=== PATIENT | male | born 1970 | race Caucasian/White ===

== ENCOUNTER 2016-09-22 03:08 | Emergency (ER) | payer MEDICAID ==
[2016-09-22] MEDS ORDERED: Acetaminophen/HYDROcodone 325-7.5 MG Tab PO ONE (03:24)
[2016-09-22] MEDS ORDERED: Bacitracin Oint 1 GM U/D Packet TOP ONE (03:24)
[2016-09-22] MEDS ORDERED: Lidocaine 1% 20 ML MDV INJECT ONE (03:24)
[2016-09-22] MEDS ORDERED: Sulfamethoxazole/Trimethoprim 800-160 MG Tab PO ONE (03:24)
--- NOTE | 2016-09-22 03:29 | EDM.PDOC ---
ED HPI Skin/Rash - General Chief Complaint: Skin Complaint Stated Complaint: EAR PAIN Time Seen by Provider: 09/22/16 03:13 - History of Present Illness INITIAL COMMENTS - FREE TEXT/NARRATIVE: HISTORY AND PHYSICAL: History of present illness: The patient is a 46-year-old male who states he has a history of hypertension and presents with a cyst like area on his ear which has been there for about a week and has manipulated getting some pus. Patient said initially that it was a pimple and seemed to get worse. It has extended inside your and he feels like his ear canal is swollen. He says it hurts when he chews food because of the discomfort at the year. He's had no fever chills nausea vomiting chest pain or shortness of breath. He has no sore throat. Review of systems: As per history of present illness and below otherwise all systems reviewed and negative. Past medical history: As per history of present illness and as reviewed below otherwise noncontributory. Surgical history: As per history of present illness and as reviewed below otherwise noncontributory. Social history: No reported history of drug or alcohol abuse. Family history: As per history of present illness and as reviewed below otherwise noncontributory. Physical exam: General: Well-developed well-nourished male who is nontoxic and speaking clearly and easily. Vital signs as noted by me HEENT: Atraumatic, normocephalic, pupils reactive, negative for conjunctival pallor or scleral icterus, mucous membranes moist, throat clear, neck supple, nontender, trachea midline. There is no cervical adenopathy or nuchal rigidity there is no mastoid tenderness on the left or redness. There is a 1.0 x 1.5 cm raised fluctuant area just at the entrance to the external canal above the ear lobe and there is induration and tenderness that extends into the earlobe and into the external canal and the auricle. There is pain with movement of the ear and external canal has significant swelling it is difficult to see the TM on that side. There is scant amount of drainage already starting to spontaneously drain Lungs: Clear to auscultation, breath sounds equal bilaterally, chest nontender. Heart: S1S2, regular, negative for clicks, rubs, or JVD. Abdomen: Soft, nondistended, nontender. NABS Genitourinary: Deferred. Rectal: Deferred. Extremities: Atraumatic, full range of motion no defects or deficits Neurovascular unremarkable. Neuro: Awake, alert, oriented. Cranial nerves II through XII unremarkable. Cerebellum unremarkable--he should ambulate into the ED without assistance or distress. Motor and sensory unremarkable throughout. Exam nonfocal. Skin: There is no evidence of any overt rashes or lesions on the face upper extremities and turgor is normal Diagnostics: [] Therapeutics: Pre-auricular block with lidocaine without epinephrine, [place] by mouth, Bactrim by mouth Procedure note: After the procedure was explained to the patient and at 3 auricular block was placed with 1% lidocaine without epinephrine the area was cleansed with saline and Betadine prep and using an 11 blade scalpel the area that already spontaneously opened was expanded and using a hemostat the cyst cavity was entered but only a small amount of drainage was obtained. The patient tolerated this well and a dressing was applied. Impression: External ear or canal/auricular abscess/cyst with drainage and local cellulitis Definitive disposition and diagnosis as appropriate pending reevaluation and review of above. - Related Data Allergies Allergy/AdvReac Type Severity Reaction Status Date / Time amoxicillin trihydrate Allergy Cannot Verified 09/22/16 03:15 [From Augmentin] Remember potassium clavulanate Allergy Cannot Verified 09/22/16 03:15 [From Augmentin] Remember Home Meds: Ambulatory Orders Medication Instructions Recorded Confirmed Lisinopril [Lisinopril] 1 tab PO DAILY 03/04/16 09/22/16 Past Medical History - Past Health History Medical/Surgical History: Denies Medical/Surgical History HEENT History: Reports: None Cardiovascular History: Reports: Hypertension Other Genitourinary History: 'Swollen prostate' Psychiatric History: Reports: None Dermatologic History: Reports: None - Infectious Disease History Infectious Disease History: Reports: None - Past Surgical History HEENT Surgical History: Reports: None Cardiovascular Surgical History: Reports: None Social & Family History - Family History Family Medical History: Noncontributory - Tobacco Use Smoking Status *Q: Current Every Day Smoker Years of Tobacco use: 33 Packs/Tins Daily: 1 Used Tobacco, but Quit: Yes Month Tobacco Last Used: 12/2013 Second Hand Smoke Exposure: No - Alcohol Use Days Per Week of Alcohol Use: 3 Number of Drinks Per Day: 4 Total Drinks Per Week: 12 - Recreational Drug Use Recreational Drug Use: No ED ROS GENERAL - Review of Systems Review Of Systems: ROS reveals no pertinent complaints other than HPI. ED EXAM, SKIN/RASH Exam: See Below (See dictation) Course - Vital Signs Last Recorded V/S: Last Vital Signs Temp 36.4 C 09/22/16 03:16 Pulse 117 H 09/22/16 03:16 Resp 16 09/22/16 03:16 BP 157/95 H 09/22/16 03:16 Pulse Ox 97 09/22/16 03:16 - Orders/Labs/Meds Orders: Active Orders 24 hr Category Date Time Status Communication Order [RC] STAT Care 09/22/16 03:44 Ordered Meds: Medications Discontinued Medications Generic Name Dose Route Start Last Admin Trade Name Dolores PRN Reason Stop Dose Admin Acetaminophen/Hydrocodone Bitart 1 tab 09/22/16 03:24 09/22/16 03:32 [place] 325-7.5 Mg PO 09/22/16 03:25 1 tab ONETIME ONE Administration Bacitracin 1 dose 09/22/16 03:24 09/22/16 03:32 Bacitracin Oint 1 Gm TOP 09/22/16 03:25 1 dose ONETIME ONE Administration Lidocaine HCl 20 ml 09/22/16 03:24 09/22/16 03:33 Xylocaine 1% INJECT 09/22/16 03:25 20 ml ONETIME ONE Administration Trimethoprim/Sulfamethoxazole 1 tab 09/22/16 03:24 09/22/16 03:33 Septra Ds PO 09/22/16 03:25 1 tab ONETIME ONE Administration Departure - Departure Time of Disposition: 03:46 Disposition: Home, Self-Care 01 Condition: good Clinical Impression: Abscess, Cyst on ear Cellulitis Qualifiers: Site of cellulitis: other site Qualified Code(s): L03.818 - Cellulitis of other sites Forms: ED Department Discharge Additional Instructions: The following information is given to patients seen in the emergency department who are being discharged to home. This information is to outline your options for follow-up care. We provide all patients seen in our emergency department with a follow-up referral. The need for follow-up, as well as the timing and circumstances, are variable depending upon the specifics of your emergency department visit. If you don't have a primary care physician on staff, we will provide you with a referral. We always advise you to contact your personal physician following an emergency department visit to inform them of the circumstance of the visit and for follow-up with them and/or the need for any referrals to a consulting specialist. The emergency department will also refer you to a specialist when appropriate. This referral assures that you have the opportunity for followup care with a specialist. All of these measure are taken in an effort to provide you with optimal care, which includes your followup. Under all circumstances we always encourage you to contact your private physician who remains a resource for coordinating your care. When calling for followup care, please make the office aware that this follow-up is from your recent emergency room visit. If for any reason you are refused follow-up, please contact the [facility] emergency department at and ask to speak to the emergency department charge nurse. [facility] Primary care- Internal Medicine and Family [facility] [address] [place] [id number] [facility] Specialty clinic-Plastic Surgery and Hand Surgery Professional Building [address] [place] [id number] As expected drainage from the ear and take antibiotics as directed. Please take the dressing off it was placed in the ER in 12 hours and apply bacitracin or Neosporin for the next several days and then stop. Please call and followup with primary care or her plastic surgeon for further reevaluation and care and return to ER as needed and as discussed. Take [id number] Motrin or ibuprofen for pain and take stronger pain medications and at sleep times. - My Orders Last 24 Hours: My Active Orders 09/22/16 03:44 Communication Order [RC] STAT - Assessment/Plan Last 24 Hours: My Active Orders 09/22/16 03:44 Communication Order [RC] STAT
[2016-09-22 04:20] VITALS: BP 139/76
== END 2016-09-22 04:17 | disposition home or self-care (01) ==
LOC: MW.ED 03:08
DX: L03.818 Cellulitis of other sites (principal); H60.00 Abscess of external ear, unspecified ear; Q18.1 Preauricular sinus and cyst; I10 Essential (primary) hypertension; Z79.899 Other long term (current) drug therapy; Z88.1 Allergy status to other antibiotic agents; F17.210 Nicotine dependence, cigarettes, uncomplicated
CPT/HCPCS: 69000; 99282; A9270; 99283

== ENCOUNTER 2017-01-12 14:34 | Emergency (ER) | payer MEDICAID, OTHER ==
--- NOTE | 2017-01-12 14:42 | EDM.PDOC ---
ED HPI GENERAL MEDICAL PROBLEM - General Chief Complaint: Skin Complaint Stated Complaint: POSSIBLE STAPH INFECTION Time Seen by Provider: 01/12/17 14:39 - History of Present Illness INITIAL COMMENTS - FREE TEXT/NARRATIVE: HISTORY AND PHYSICAL: History of present illness: Patient is a 46-year-old male who presents from [facility] in custody with a complaint of infection to his right leg he has had cellulitis before the series been worse over last several days his been no reported fever chills nausea vomiting or other complaints Review of systems: As per history of present illness and below otherwise all systems reviewed and negative. Past medical history: As per history of present illness and as reviewed below otherwise noncontributory. Surgical history: As per history of present illness and as reviewed below otherwise noncontributory. Social history: No reported history of drug or alcohol abuse. Family history: As per history of present illness and as reviewed below otherwise noncontributory. Physical exam: HEENT: Atraumatic, normocephalic, pupils reactive, negative for conjunctival pallor or scleral icterus, mucous membranes moist, throat clear, neck supple, nontender, trachea midline. Lungs: Clear to auscultation, breath sounds equal bilaterally, chest nontender. Heart: S1S2, regular, negative for clicks, rubs, or JVD. Abdomen: Soft, nondistended, nontender. Negative for masses or hepatosplenomegaly. Negative for costovertebral tenderness. Pelvis: Stable nontender. Genitourinary: Deferred. Rectal: Deferred. Extremities: Patient is noted to have a excoriated area to the anterolateral aspect of his proximal right leg with surrounding erythema and warmth there is no fluctuance no significant induration Neuro: Awake, alert, oriented. Cranial nerves II through XII unremarkable. Cerebellum unremarkable. Motor and sensory unremarkable throughout. Exam nonfocal. Diagnostics: None Therapeutics: None Impression: #1 cellulitis right leg Definitive disposition and diagnosis as appropriate pending reevaluation and review of above. - Related Data Allergies Allergy/AdvReac Type Severity Reaction Status Date / Time amoxicillin trihydrate Allergy Cannot Verified 09/22/16 03:15 [From Augmentin] Remember potassium clavulanate Allergy Cannot Verified 09/22/16 03:15 [From Augmentin] Remember Home Meds: Home Meds Lisinopril [Lisinopril] 1 tab PO DAILY 03/04/16 [History] Past Medical History - Past Health History Medical/Surgical History: Denies Medical/Surgical History HEENT History: Reports: None Cardiovascular History: Reports: Hypertension Other Genitourinary History: 'Swollen prostate' Psychiatric History: Reports: None Dermatologic History: Reports: None - Infectious Disease History Infectious Disease History: Reports: None - Past Surgical History HEENT Surgical History: Reports: None Cardiovascular Surgical History: Reports: None Social & Family History - Family History Family Medical History: Noncontributory - Tobacco Use Smoking Status *Q: Current Every Day Smoker Years of Tobacco use: 33 Packs/Tins Daily: 1 Used Tobacco, but Quit: Yes Month Tobacco Last Used: 12/2013 Second Hand Smoke Exposure: No - Alcohol Use Days Per Week of Alcohol Use: 3 Number of Drinks Per Day: 4 Total Drinks Per Week: 12 - Recreational Drug Use Recreational Drug Use: No ED ROS GENERAL - Review of Systems Review Of Systems: ROS reveals no pertinent complaints other than HPI. ED EXAM, SKIN/RASH Exam: See Below (See dictation) Departure - Departure Time of Disposition: 14:42 Disposition: Home, Self-Care 01 Condition: Good Clinical Impression: Cellulitis - Discharge Information Forms: ED Department Discharge Additional Instructions: The following information is given to patients seen in the emergency department who are being discharged to home. This information is to outline your options for follow-up care. We provide all patients seen in our emergency department with a follow-up referral. The need for follow-up, as well as the timing and circumstances, are variable depending upon the specifics of your emergency department visit. If you don't have a primary care physician on staff, we will provide you with a referral. We always advise you to contact your personal physician following an emergency department visit to inform them of the circumstance of the visit and for follow-up with them and/or the need for any referrals to a consulting specialist. The emergency department will also refer you to a specialist when appropriate. This referral assures that you have the opportunity for followup care with a specialist. All of these measure are taken in an effort to provide you with optimal care, which includes your followup. Under all circumstances we always encourage you to contact your private physician who remains a resource for coordinating your care. When calling for followup care, please make the office aware that this follow-up is from your recent emergency room visit. If for any reason you are refused follow-up, please contact the [facility] emergency department at and asked to speak to the emergency department charge nurse. Clindamycin Bactrim as prescribed follow-up private medical doctor 2440 hrs. return as needed as discussed
== END 2017-01-12 14:46 ==
LOC: MW.ED 14:34
CPT/HCPCS: 99282

== ENCOUNTER 2019-05-10 14:02 | Emergency (ER) | payer MEDICAID, OTHER ==
--- NOTE | 2019-05-10 14:10 | EDM.PDOC ---
ED HPI GENERAL MEDICAL PROBLEM - General Chief Complaint: Lower Extremity Injury/Pain Stated Complaint: LEFT KNEE PAIN Time Seen by Provider: 05/10/19 14:08 Source of Information: Reports: Patient History Limitations: Reports: No Limitations - History of Present Illness INITIAL COMMENTS - FREE TEXT/NARRATIVE: History of present illness: []Patient started having left knee swelling 5 days ago went to urgent care and had blood work that was normal and his hypertensive medicines changed. He also complains of right hand swelling and swelling in his ankles. His symptoms have Not improved with the medication changed to HCTZ. He denies any trauma, fevers, chills, knee pain or difficulty walking. She has no chest pain, shortness of breath or other symptoms. She states she's had this problem in the past and was started on steroids that worked well. Review of systems: As per history of present illness and below otherwise all systems reviewed and negative. Past medical history: As per history of present illness and as reviewed below otherwise noncontributory. Surgical history: As per history of present illness and as reviewed below otherwise noncontributory. Social history: No reported history of drug or alcohol abuse. Family history: As per history of present illness and as reviewed below otherwise noncontributory. Physical exam: General: Well developed, well nourished in NAD HEENT: Atraumatic, normocephalic, pupils reactive, negative for conjunctival pallor or scleral icterus, mucous membranes moist, throat clear, neck supple, nontender, trachea midline. Lungs: Clear to auscultation, breath sounds equal bilaterally, chest nontender. Heart: S1S2, regular, negative for clicks, rubs, or JVD. Abdomen: NABS, Soft, nondistended, nontender. Negative for masses or hepatosplenomegaly. Negative for costovertebral tenderness. Pelvis: Stable nontender. Genitourinary: Deferred. Rectal: Deferred. Extremities: Atraumatic, left knee with lateral suprapatellar effusion, nontender on exam, 1+ pitting edema distally, negative for cords or calf pain. Neurovascular unremarkable. Neuro: Awake, alert, oriented. Cranial nerves II through XII unremarkable. Cerebellum unremarkable. Motor and sensory unremarkable throughout. Exam nonfocal. Skin:warm and dry Diagnostics: None Therapeutics: None ED Course: stable Impression: Left knee effusion Prescriptions: Prednisone Plan: Take meds as directed, follow up with your primary care physician, return to ER if symptoms worsen or change. Definitive disposition and diagnosis as appropriate pending reevaluation and review of above. - Related Data Allergies Allergy/AdvReac Type Severity Reaction Status Date / Time amoxicillin [From Augmentin] Allergy swlling on Verified 05/10/19 14:20 lips and itching amoxicillin trihydrate Allergy Cannot Verified 05/10/19 14:20 [From Augmentin] Remember clavulanic acid Allergy swlling on Verified 05/10/19 14:20 [From Augmentin] lips and itching potassium clavulanate Allergy Cannot Verified 05/10/19 14:20 [From Augmentin] Remember Sulfa (Sulfonamide Allergy Swelling Verified 05/10/19 14:20 Antibiotics) sulfamethoxazole Allergy swelling Verified 05/10/19 14:20 [From Bactrim] on the mouth and itching trimethoprim [From Bactrim] Allergy swelling Verified 05/10/19 14:20 on the mouth and itching Home Meds: Home Meds Allopurinol [Zyloprim] 100 mg PO DAILY 05/10/19 [History] Hydrochlorothiazide [Microzide] 12.5 mg PO DAILY 05/10/19 [History] predniSONE [Prednisone] 20 mg PO DAILY #5 tablet 05/10/19 [Rx] Past Medical History - Past Health History Medical/Surgical History: Denies Medical/Surgical History HEENT History: Reports: None Cardiovascular History: Reports: Hypertension Respiratory History: Reports: None Gastrointestinal History: Reports: None Genitourinary History: Reports: None Other Genitourinary History: 'Swollen prostate' Musculoskeletal History: Reports: Gout, None Neurological History: Reports: None Psychiatric History: Reports: None Endocrine/Metabolic History: Reports: None Hematologic History: Reports: None Immunologic History: Reports: None Oncologic (Cancer) History: Reports: None Dermatologic History: Reports: Cellulitis, None - Infectious Disease History Infectious Disease History: Reports: None - Past Surgical History HEENT Surgical History: Reports: Adenoidectomy, Tonsillectomy Cardiovascular Surgical History: Reports: None Social & Family History - Family History Family Medical History: Noncontributory - Caffeine Use Caffeine Use: Reports: None Review of Systems - Review of Systems Review Of Systems: See Below ED EXAM, GENERAL - Physical Exam Exam: See Below Course - Vital Signs Last Recorded V/S: Last Vital Signs Temp 98.3 F 05/10/19 14:21 Pulse 108 H 05/10/19 14:21 Resp 17 05/10/19 14:21 BP 135/82 05/10/19 14:21 Pulse Ox 98 05/10/19 14:21 Departure - Departure Time of Disposition: 14:24 Disposition: Home, Self-Care 01 Condition: Good Clinical Impression: Effusion, left knee - Discharge Information *PRESCRIPTION DRUG MONITORING PROGRAM REVIEWED*: No *COPY OF PRESCRIPTION DRUG MONITORING REPORT IN PATIENT ROCKY: No Prescriptions: predniSONE [Prednisone] 20 mg PO DAILY #5 tablet Referrals: PCP,None [Primary Care Provider] - Forms: ED Department Discharge Additional Instructions: The following information is given to patients seen in the emergency department who are being discharged to home. This information is to outline your options for follow-up care. We provide all patients seen in our emergency department with a follow-up referral. The need for follow-up, as well as the timing and circumstances, are variable depending upon the specifics of your emergency department visit. If you don't have a primary care physician on staff, we will provide you with a referral. We always advise you to contact your personal physician following an emergency department visit to inform them of the circumstance of the visit and for follow-up with them and/or the need for any referrals to a consulting specialist. The emergency department will also refer you to a specialist when appropriate. This referral assures that you have the opportunity for follow-up care with a specialist. All of these measure are taken in an effort to provide you with optimal care, which includes your follow-up. Under all circumstances we always encourage you to contact your private physician who remains a resource for coordinating your care. When calling for follow-up care, please make the office aware that this follow-up is from your recent emergency room visit. If for any reason you are refused follow-up, please contact the [facility] Emergency Department at and asked to speak to the emergency department charge nurse. Take meds as directed, follow up with your primary care physician, return to ER if symptoms worsen or change. [facility] Specialty Care - Orthopedic Clinic Professional [address], [address] [place] [address]
[2019-05-10 14:23] VITALS: BP 135/82; PULSE 108
== END 2019-05-10 14:34 | disposition home or self-care (01) ==
LOC: MW.ED 14:02
DX: M25.462 Effusion, left knee (principal); I10 Essential (primary) hypertension; Z79.899 Other long term (current) drug therapy; Z88.0 Allergy status to penicillin; Z88.1 Allergy status to other antibiotic agents; Z88.2 Allergy status to sulfonamides
CPT/HCPCS: 99282; 99283

== ENCOUNTER 2020-02-16 07:53 | Day surgery (SDC) | payer MEDICAID ==
[~2020-02-16 07:53] MED LIST: Lactated Ringers 1,000 ML IV SCH
[2020-02-16] MEDS ORDERED: Ondansetron 4 MG/2 ML SDV ONE (08:28)
[2020-02-16] MEDS ORDERED: Midazolam 1 MG/ML 2 ML SDV ONE (08:29)
[2020-02-16] MEDS ORDERED: Propofol 200 MG/20 ML SDV ONE (08:29)
[2020-02-16] MEDS ORDERED: fentaNYL 100 MCG/2 ML SDV ONE (08:29)
--- NOTE | 2020-02-16 08:49 | PCM.PREANE ---
Preanesthetic Assessment - Anesthesia/Transfusion/Family Hx Anesthesia History: Prior Anesthesia Without Reaction Family History of Anesthesia Reaction: No Transfusion History: No Prior Transfusion(s) Intubation History: Unknown - Review of Systems General: No Symptoms Pulmonary: No Symptoms Cardiovascular: No Symptoms Gastrointestinal: No Symptoms Neurological: No Symptoms Other: Reports: None - Physical Assessment Vital Signs: Last Vital Signs Temp 36.1 C 02/16/20 08:10 Pulse 93 02/16/20 08:10 Resp 18 02/16/20 08:10 BP 136/88 02/16/20 08:10 Pulse Ox 94 L 02/16/20 08:10 Height: 6 ft Weight: 161.479 kg ASA Class: 3 Mental Status: Alert & Oriented x3 Airway Class: Mallampati = 1 Dentition: Reports: Normal Dentition Thyro-Mental Finger Breadths: 3 Mouth Opening Finger Breadths: 3 ROM/Head Extension: Full Lungs: Clear to Auscultation, Normal Respiratory Effort Cardiovascular: Regular Rate, Regular Rhythm - Allergies Allergies/Adverse Reactions: Allergies Allergy/AdvReac Type Severity Reaction Status Date / Time amoxicillin [From Augmentin] Allergy swlling on Verified 02/10/20 10:24 lips and itching amoxicillin trihydrate Allergy Cannot Verified 02/10/20 10:24 [From Augmentin] Remember clavulanic acid Allergy swlling on Verified 02/10/20 10:24 [From Augmentin] lips and itching potassium clavulanate Allergy Cannot Verified 02/10/20 10:24 [From Augmentin] Remember Sulfa (Sulfonamide Allergy Swelling Verified 02/10/20 10:24 Antibiotics) sulfamethoxazole Allergy swelling Verified 02/10/20 10:24 [From Bactrim] on the mouth and itching trimethoprim [From Bactrim] Allergy swelling Verified 02/10/20 10:24 on the mouth and itching - Blood Blood Available: No - Anesthesia Plan Pre-Op Medication Ordered: None - Acknowledgements Anesthesia Type Planned: General Anesthesia Pt an Appropriate Candidate for the Planned Anesthesia: Yes Alternatives and Risks of Anesthesia Discussed w Pt/Guardian: Yes Pt/Guardian Understands and Agrees with Anesthesia Plan: Yes PreAnesthesia Questionnaire - Past Health History Medical/Surgical History: Denies Medical/Surgical History HEENT History: Reports: None Cardiovascular History: Reports: High Cholesterol, Hypertension Respiratory History: Reports: Sleep Apnea Other Respiratory History: uses CPAP every night Gastrointestinal History: Reports: GERD, Hepatitis Other Gastrointestinal History: hx of Hepatitis C- states it is "gone" Genitourinary History: Reports: None Other Genitourinary History: 'Swollen prostate' Musculoskeletal History: Reports: Fracture, Gout Other Musculoskeletal History: hx of fx ankle Neurological History: Reports: None Psychiatric History: Reports: None Endocrine/Metabolic History: Reports: Obesity/BMI 30+ (BMI 48.3) Hematologic History: Reports: None Immunologic History: Reports: None Oncologic (Cancer) History: Reports: None Dermatologic History: Reports: Other (See Below) Other Dermatologic History: hx of Staph infections (MRSA), hx of fungus like rash- currently on hip - Infectious Disease History Infectious Disease History: Reports: None - Past Surgical History Head Surgeries/Procedures: Reports: None HEENT Surgical History: Reports: Adenoidectomy, Tonsillectomy Other Female Surgeries/Procedures: Excision of Epididymal Cyst Male Surgical History: Reports: Other (See Below) (exc. left epididimal cyst) - SUBSTANCE USE Smoking Status *Q: Current Every Day Smoker Days Per Week of Alcohol Use: 1 - HOME MEDS Home Medications: Home Meds allopurinoL [Zyloprim] 300 mg PO DAILY 05/10/19 [History] hydroCHLOROthiazide [Microzide] 25 mg PO DAILY 05/10/19 [History] Colchicine 2 tab PO ASDIRECTED 02/10/20 [History] Ibuprofen 1 tab PO ASDIRECTED PRN 02/10/20 [History] Losartan Potassium 50 mg PO DAILY 02/10/20 [History] Rosuvastatin Calcium 20 mg PO DAILY 02/10/20 [History] Testosterone Cypionate 100 mg IM WEEKLY 02/10/20 [History] - CURRENT (IN HOUSE) MEDS Current Meds: Current Medications Lactated Ringer's (Ringers, Lactated) 1,000 mls @ 100 mls/hr IV ASDIRECTED JEREMY Discontinued Medications Fentanyl (Sublimaze) Confirm Administered Dose 100 mcg .ROUTE .STK-MED ONE Stop: 02/16/20 08:30 Midazolam HCl (Versed 1 Mg/Ml) Confirm Administered Dose 2 mg .ROUTE .STK-MED ONE Stop: 02/16/20 08:30 Ondansetron HCl (Zofran) Confirm Administered Dose 4 mg .ROUTE .STK-MED ONE Stop: 02/16/20 08:29 Propofol (Diprivan 20 Ml) Confirm Administered Dose 400 mg .ROUTE .[facility] ONE Stop: 02/16/20 08:30
[2020-02-16] MEDS ORDERED: Ciprofloxacin in D5W 200 ML ONE (09:57)
[2020-02-16] MEDS ORDERED: Ciprofloxacin in D5W 400 MG in Premix Bag 1 BAG IV SCH ×2 (10:15)
[2020-02-16] MEDS ORDERED: Ketorolac 30 MG/ML SDV ONE (11:44)
[2020-02-16] MEDS ORDERED: COLCHICINE PO SCH (12:15)
[2020-02-16] MEDS ORDERED: TESTOSTERONE CYPIONATE 100 MG IM SCH (12:15)
--- NOTE | 2020-02-16 12:27 | PCM.POSTAN ---
POST ANESTHESIA ASSESSMENT - MENTAL STATUS Mental Status: Alert, Oriented - VITAL SIGNS Vital Signs: Last Vital Signs Temp 36 C L 02/16/20 11:58 Pulse 82 02/16/20 12:19 Resp 12 02/16/20 12:19 BP 102/61 02/16/20 12:19 Pulse Ox 95 02/16/20 12:19 - RESPIRATORY Respiratory Status: Respiratory Rate WNL, Airway Patent, O2 Saturation Stable - CARDIOVASCULAR CV Status: Pulse Rate WNL, Blood Pressure Stable - GASTROINTESTINAL GI Status: No Symptoms - PAIN Pain Score: 0 - POST OP HYDRATION Hydration Status: Adequate & Stable - OBSERVATIONS Free Text/Narrative:: No anesthesia problems, some motor and sensory deficit from spinal anes. still present
--- NOTE | 2020-02-16 12:50 | OR ---
SURGEON: Reinaldo Spencer M.D. DATE OF PROCEDURE: 02/16/2020 PREOPERATIVE DIAGNOSIS: Large right epididymal cyst. POSTOPERATIVE DIAGNOSIS: Large right epididymal cyst. OPERATION: Epididymal cyst excision. DESCRIPTION OF PROCEDURE: The patient was given spinal anesthesia. He was in supine position. External genital area was prepped and draped in sterile drapes. A transverse incision was made in the right scrotal sac. The testicle with the attached epididymal cyst was delivered. Dissection was continued until the epididymal cyst was relatively free. The cyst was not completely free. The cyst wall was not completely free because he had a previous epididymal cyst excision a few years back and this was a recurrent. So there were adhesions between the cyst, the testicle, and the cord structures. So that part of the cyst was left in place. The edges were either fulgurated or sutured with a running 3-0 chromic suture to control any possible future bleeding. All other areas of question were either coagulated or tied off. The blood flow into the cord was palpable at the end of the procedure. The testicle with the cord structures attached was put back in the scrotal sac, which was then irrigated. The wound was closed after a separate stab wound incision in the bottom of the scrotal sac was made for drainage through which a quarter-inch Regulo drain was advanced. The closure was done with two layers of 3-0 chromic running suture for the subcutaneous tissue including the muscle and 3-0 chromic interrupted sutures for the skin. The drain was secured in place with 2-0 silk. The patient tolerated the procedure well. Blood loss was minimal, under 10 mL. He was moved to recovery room in good condition. PLAN: I will see him again in 2 days to take the Regulo drain out. SHEREE / THOMAS /[id number]
--- NOTE | 2020-02-16 14:40 | PCM48HPAN ---
Post Anesthesia Note - EVALUATION WITHIN 48HRS OF ANESTHETIC Vital Signs in Normal Range: Yes Patient Participated in Evaluation: Yes Respiratory Function Stable: Yes Airway Patent: Yes Cardiovascular Function Stable: Yes Hydration Status Stable: Yes Pain Control Satisfactory: Yes Nausea and Vomiting Control Satisfactory: Yes Mental Status Recovered: Yes Vital Signs: Last Vital Signs Temp 36 C L 02/16/20 11:58 Pulse 82 02/16/20 12:19 Resp 12 02/16/20 12:19 BP 102/61 02/16/20 12:19 Pulse Ox 95 02/16/20 12:19 - COMMENTS/OBSERVATIONS Free Text/Narrative:: No anesthesia problems
[2020-02-16 16:41] VITALS: BP 108/66; PULSE 76
[2020-02-17] MEDS ORDERED: LOSARTAN POTASSIUM 50 MG PO SCH (09:00)
[2020-02-17] MEDS ORDERED: HYDROCHLOROTHIAZIDE 25 MG PO SCH (09:00)
[2020-02-17] MEDS ORDERED: Non-Formulary Medication 1 Each (Allopurinol [Zyloprim] 300 MG) PO SCH (09:00)
[2020-02-17] MEDS ORDERED: Non-Formulary Medication 1 Each (Rosuvastatin Calcium [Rosuvastatin Calcium] 20 MG) PO SCH (09:00)
== END 2020-02-16 14:30 | disposition home or self-care (01) ==
LOC: MW.SDS 07:53
PROVIDERS: ATTEND Urology
DX: N50.3 Cyst of epididymis (principal); E78.5 Hyperlipidemia, unspecified; I10 Essential (primary) hypertension; E78.00 Pure hypercholesterolemia, unspecified; G47.33 Obstructive sleep apnea (adult) (pediatric); F17.210 Nicotine dependence, cigarettes, uncomplicated; J02.9 Acute pharyngitis, unspecified; E66.9 Obesity, unspecified; Z99.89 Dependence on other enabling machines and devices; Z88.0 Allergy status to penicillin; Z88.2 Allergy status to sulfonamides; Z88.8 Allergy status to other drugs, medicaments and biological substances; Z79.899 Other long term (current) drug therapy; Z68.42 Body mass index [BMI] 45.0-49.9, adult; Z88.1 Allergy status to other antibiotic agents
CPT/HCPCS: 88304; J0131; J0744; J1885; J2250; J2405; J2704; J3010; J7120

== ENCOUNTER 2020-07-03 22:14 | Emergency (ER) | payer MEDICAID, OTHER ==
[2020-07-03] MEDS ORDERED: Meclizine 25 MG Tab PO ONE (22:37)
--- NOTE | 2020-07-03 22:41 | EDM.PDOC ---
ED HPI GENERAL MEDICAL PROBLEM - General Chief Complaint: Fever Stated Complaint: DIZZNESS Time Seen by Provider: 07/03/20 22:26 Source of Information: Reports: Patient History Limitations: Reports: No Limitations - History of Present Illness INITIAL COMMENTS - FREE TEXT/NARRATIVE: Patient is a 50-year-old male who presents today for dizziness. Patient states a few hours ago dizziness started is made worse when he lays down. Patient does have some dizziness when turning his head as well. Patient denies any vision changes numbness weakness in any extremities. Patient also reported some nausea with the dizziness as well. Patient also reported some body aches. Patient denies any fevers cough or shortness of breath. - Related Data Allergies Allergy/AdvReac Type Severity Reaction Status Date / Time amoxicillin [From Augmentin] Allergy swlling on Verified 07/03/20 22:26 lips and itching amoxicillin trihydrate Allergy Cannot Verified 07/03/20 22:26 [From Augmentin] Remember clavulanic acid Allergy swlling on Verified 07/03/20 22:26 [From Augmentin] lips and itching potassium clavulanate Allergy Cannot Verified 07/03/20 22:26 [From Augmentin] Remember Sulfa (Sulfonamide Allergy Swelling Verified 07/03/20 22:26 Antibiotics) sulfamethoxazole Allergy swelling Verified 07/03/20 22:26 [From Bactrim] on the mouth and itching trimethoprim [From Bactrim] Allergy swelling Verified 07/03/20 22:26 on the mouth and itching Home Meds: Home Meds allopurinoL [Zyloprim] 300 mg PO DAILY 05/10/19 [History] hydroCHLOROthiazide [Microzide] 25 mg PO DAILY 05/10/19 [History] Colchicine 2 tab PO ASDIRECTED 02/10/20 [History] Ibuprofen 1 tab PO ASDIRECTED PRN 02/10/20 [History] Losartan Potassium 50 mg PO DAILY 02/10/20 [History] Rosuvastatin Calcium 20 mg PO DAILY 02/10/20 [History] Testosterone Cypionate 100 mg IM WEEKLY 02/10/20 [History] Meclizine HCl [Motion Sickness Relief] 25 mg PO Q8HR PRN 5 Days #15 tab.chew 07/04/20 [Rx] Past Medical History - Past Health History Medical/Surgical History: Denies Medical/Surgical History HEENT History: Reports: None Cardiovascular History: Reports: High Cholesterol, Hypertension Respiratory History: Reports: Sleep Apnea Other Respiratory History: uses CPAP every night Gastrointestinal History: Reports: GERD, Hepatitis Other Gastrointestinal History: hx of Hepatitis C- states it is "gone" Genitourinary History: Reports: None Other Genitourinary History: 'Swollen prostate' Musculoskeletal History: Reports: Fracture, Gout Other Musculoskeletal History: hx of fx ankle Neurological History: Reports: None Psychiatric History: Reports: None Endocrine/Metabolic History: Reports: Obesity/BMI 30+ Hematologic History: Reports: None Immunologic History: Reports: None Oncologic (Cancer) History: Reports: None Dermatologic History: Reports: Other (See Below) Other Dermatologic History: hx of Staph infections (MRSA), hx of fungus like rash- currently on hip - Infectious Disease History Infectious Disease History: Reports: Hepatitis C, MRSA - Past Surgical History Head Surgeries/Procedures: Reports: None HEENT Surgical History: Reports: Adenoidectomy, Tonsillectomy Cardiovascular Surgical History: Reports: None Respiratory Surgical History: Reports: None Male Surgical History: Reports: Other (See Below) Musculoskeletal Surgical History: Reports: None Social & Family History - Family History Family Medical History: No Pertinent Family History - Tobacco Use Tobacco Use Status *Q: Current Every Day Tobacco User Packs/Tins Daily: 1 - Caffeine Use Caffeine Use: Reports: None - Recreational Drug Use Recreational Drug Use: Yes Recreational Drug Type: Reports: Methamphetamine ED ROS GENERAL - Review of Systems Review Of Systems: See Below Constitutional: Reports: No Symptoms HEENT: Reports: No Symptoms Respiratory: Reports: No Symptoms Cardiovascular: Reports: No Symptoms Endocrine: Reports: No Symptoms GI/Abdominal: Reports: Nausea : Reports: No Symptoms Musculoskeletal: Reports: No Symptoms Skin: Reports: No Symptoms Neurological: Reports: Dizziness Psychiatric: Reports: No Symptoms Hematologic/Lymphatic: Reports: No Symptoms Immunologic: Reports: No Symptoms ED EXAM, GENERAL - Physical Exam Exam: See Below Exam Limited By: No Limitations General Appearance: Alert, WD/WN Eye Exam: Bilateral Eye: EOMI, PERRL Head: Atraumatic, Normocephalic Neck: Normal Inspection Respiratory/Chest: No Respiratory Distress, Lungs Clear Cardiovascular: Normal Peripheral Pulses, Regular Rate, Rhythm Extremities: Normal Inspection, Normal Range of Motion Neurological: Alert, Oriented, CN II-XII Intact, Normal Cognition, Normal Gait Course - Vital Signs Last Recorded V/S: Last Vital Signs Temp 96 F L 07/03/20 22:22 Pulse 80 07/04/20 00:08 Resp 18 07/04/20 00:08 BP 118/75 07/04/20 00:08 Pulse Ox 98 07/04/20 00:08 - Orders/Labs/Meds Orders: Active Orders 24 hr Category Date Time Status COVID-19/FLU A+B [MOLEC] Stat Lab 07/04/20 00:25 Received Labs: Laboratory Tests 07/03/20 07/03/20 Range/Units 22:50 22:50 WBC 9.60 (4.0-11.0) K/uL RBC 5.70 (4.50-5.90) M/uL Hgb 16.7 (13.0-17.0) g/dL Hct 49.8 (38.0-50.0) % MCV 87.4 (80.0-98.0) fL MCH 29.3 (27.0-32.0) pg MCHC 33.5 (31.0-37.0) g/dL RDW Std Deviation 43.2 (28.0-62.0) fl RDW Coeff of Liane 14 (11.0-15.0) % Plt Count 294 (150-400) K/uL MPV 10.80 (7.40-12.00) fL Neut % (Auto) 68.6 (48.0-80.0) % Lymph % (Auto) 21.8 (16.0-40.0) % [place] % (Auto) 8.0 (0.0-15.0) % Eos % (Auto) 1.4 (0.0-7.0) % Baso % (Auto) 0.2 (0.0-1.5) % Neut # (Auto) 6.6 H (1.4-5.7) K/uL Lymph # (Auto) 2.1 (0.6-2.4) K/uL [place] # (Auto) 0.8 (0.0-0.8) K/uL Eos # (Auto) 0.1 (0.0-0.7) K/uL Baso # (Auto) 0.0 (0.0-0.1) K/uL Nucleated RBC % 0.0 /100WBC Nucleated RBCs # 0 K/uL Sodium 136 (136-148) mmol/L Potassium 3.6 (3.5-5.1) mmol/L Chloride 101 (98-107) mmol/L Carbon Dioxide 27.4 (21.0-32.0) mmol/L BUN 14 (7.0-18.0) mg/dL Creatinine 1.1 (0.8-1.3) mg/dL Est Cr Clr Drug Dosing 89.16 mL/min Estimated GFR (MDRD) > 60.0 ml/min Glucose 135 H (74-106) mg/dL Calcium 9.1 (8.5-10.1) mg/dL Meds: Medications Discontinued Medications Generic Name Dose Route Start Last Admin Trade Name Freq PRN Reason Stop Dose Admin Diphenhydramine HCl 25 mg 07/03/20 23:28 07/04/20 00:02 Benadryl IVPUSH 07/03/20 23:29 25 mg ONETIME ONE Administration Sodium Chloride 1,000 mls @ 1,000 mls/hr 07/03/20 23:28 07/04/20 00:01 Normal Saline IV 07/04/20 00:27 1,000 mls/hr .Bolus ONE Administration Meclizine HCl 25 mg 07/03/20 22:37 07/03/20 22:52 Antivert PO 07/03/20 22:38 25 mg ONETIME ONE Administration Metoclopramide HCl 10 mg 07/03/20 23:28 07/04/20 00:02 Reglan IVPUSH 07/03/20 23:29 10 mg ONETIME ONE Administration - Re-Assessments/Exams Free Text/Narrative Re-Assessment/Exam: 07/04/20 00:11 Patient still complains of dizziness after receiving meclizine. Patient was now given Reglan and Benadryl. Patient CT head shows no acute findings. Dates that he is feeling better and was able to walk to the bathroom without assistance. Patient will be discharged and back into police custody. Departure - Departure Time of Disposition: 00:53 Disposition: Home, Self-Care 01 Condition: Good Clinical Impression: Dizziness - Discharge Information *PRESCRIPTION DRUG MONITORING PROGRAM REVIEWED*: Not Applicable *COPY OF PRESCRIPTION DRUG MONITORING REPORT IN PATIENT ROCKY: Not Applicable Referrals: PCP,None [Primary Care Provider] - Forms: ED Department Discharge Additional Instructions: The following information is given to patients seen in the emergency department who are being discharged to home. This information is to outline your options for follow-up care. We provide all patients seen in our emergency department with a follow-up referral. The need for follow-up, as well as the timing and circumstances, are variable depending upon the specifics of your emergency department visit. If you don't have a primary care physician on staff, we will provide you with a referral. We always advise you to contact your personal physician following an emergency department visit to inform them of the circumstance of the visit and for follow-up with them and/or the need for any referrals to a consulting specialist. The emergency department will also refer you to a specialist when appropriate. This referral assures that you have the opportunity for follow-up care with a specialist. All of these measure are taken in an effort to provide you with optimal care, which includes your follow-up. Under all circumstances we always encourage you to contact your private physician who remains a resource for coordinating your care. When calling for follow-up care, please make the office aware that this follow-up is from your recent emergency room visit. If for any reason you are refused follow-up, please contact the [facility] Emergency Department at and asked to speak to the emergency department charge nurse. Please follow up with your primary care physician. If you do not have a primary care physician, see below: [facility] [address] [place] [id number] [facility] [address] [place] [id number] Please follow-up with your primary care physician if you have any increased symptoms please return to the ED Sepsis Event Note (ED) - Evaluation Sepsis Screening Result: No Definite Risk - Focused Exam Vital Signs: Vital Signs Temp Pulse Resp BP Pulse Ox 07/04/20 00:08 80 18 118/75 98 07/03/20 23:15 86 18 121/85 95 07/03/20 22:22 96 F L 92 20 153/115 H 95 - My Orders Last 24 Hours: My Active Orders 07/04/20 00:25 COVID-19/FLU A+B [MOLEC] Stat - Assessment/Plan Last 24 Hours: My Active Orders 07/04/20 00:25 COVID-19/FLU A+B [MOLEC] Stat Assessment:: Is a 50-year-old male presents today for dizziness. Patient patient likely peripheral has is made worse with laying down and head turning. Patient will get given meclizine labs and reassess.
[2020-07-03 23:11] LABS: BLOOD UREA NITROGEN,BUN 14 mg/dL (7.0-18.0); CARBON DIOXIDE,CO2 27.4 mmol/L (21.0-32.0); CHLORIDE,CL 101 mmol/L (98-107); GLUCOSE RANDOM 135 mg/dL (74-106); POTASSIUM,K 3.6 mmol/L (3.5-5.1); SODIUM,NA 136 mmol/L (136-148)
[2020-07-03] MEDS ORDERED: Metoclopramide 10 MG/2 ML SDV IVPUSH ONE (23:28)
[2020-07-03] MEDS ORDERED: diphenhydrAMINE 50 MG/ML SDV IVPUSH ONE (23:28)
[2020-07-03] MEDS ORDERED: Sodium Chloride 0.9% 1,000 ML IV ONE (23:28)
--- NOTE | 2020-07-03 23:43 | CT ---
Indication: Dizziness Technique: Nonenhanced axial CT imaging through the head. Sagittal and coronal reconstructions are provided. Comparison: CT head without contrast 01/22/2014 Findings: There is no intracranial hemorrhage, edema, or mass effect. There is normal attenuation of the brain parenchyma. The ventricles are normal in size. The basal cisterns are patent. The calvarium is intact. The visualized paranasal sinuses and mastoid air cells are aerated. Impression: No acute intracranial process. Please note that all CT scans at this facility use dose modulation, iterative reconstruction, and/or weight-based dosing when appropriate to reduce radiation dose to as low as reasonably achievable. Dictated by Andrew Magana MD @ Jul 03 2020 11:33PM Signed by Dr. Andrew Magana @ Jul 03 2020 11:41PM
[2020-07-04 00:09] VITALS: PULSE 80
[2020-07-04 01:07] VITALS: BP 130/90
[2020-07-04 01:15] LABS: CORONAVIRUS COVID-19 NAA NEGATIVE (NEGATIVE); INFLUENZA A NAA NEGATIVE (NEGATIVE); INFLUENZA B NAA NEGATIVE (NEGATIVE)
== END 2020-07-04 01:05 | disposition home or self-care (01) ==
LOC: MW.ED 22:14
DX: R42 Dizziness and giddiness (principal); I10 Essential (primary) hypertension; E78.00 Pure hypercholesterolemia, unspecified; F17.210 Nicotine dependence, cigarettes, uncomplicated; E66.9 Obesity, unspecified; Z68.42 Body mass index [BMI] 45.0-49.9, adult; Z88.0 Allergy status to penicillin; Z88.1 Allergy status to other antibiotic agents; Z88.2 Allergy status to sulfonamides; Z79.899 Other long term (current) drug therapy; Z20.828 Contact with and (suspected) exposure to other viral communicable diseases
CPT/HCPCS: 0240U; 36415; 70450; 80048; 85025; 96374; 96375; 99284; A9270; J1200; J2765; J7030; 99282

== ENCOUNTER 2022-05-14 10:10 | Emergency (ER) | payer MEDICAID ==
[2022-05-14] MEDS ORDERED: Sodium Chloride 0.9% 2.5 ML Syringe FLUSH PRN (10:35)
[2022-05-14] MEDS ORDERED: Sodium Chloride 0.9% 10 ML Syringe FLUSH PRN (10:35)
[2022-05-14 11:06] LABS: CARBON DIOXIDE,CO2 26.9 mmol/L (21.0-32.0); POTASSIUM,K 3.6 mmol/L (3.5-5.1)
[2022-05-14 11:26] LABS: CORONAVIRUS COVID-19 NAA NEGATIVE (NEGATIVE); INFLUENZA A NAA NEGATIVE (NEGATIVE); INFLUENZA B NAA NEGATIVE (NEGATIVE)
[2022-05-14] MEDS ORDERED: Ketorolac 60 MG/2 ML SDV IM ONE (13:07)
[2022-05-14] MEDS ORDERED: Ketorolac 30 MG/ML SDV IVPUSH ONE (13:27)
[2022-05-14] MEDS ORDERED: Ketorolac 30 MG/ML SDV IVPUSH STA (13:33)
[2022-05-14] MEDS ORDERED: Ketorolac 60 MG/2 ML SDV IVPUSH ONE (13:36)
[2022-05-14 14:18] VITALS: BP 153/51; PULSE 83
== END 2022-05-14 15:03 | disposition home or self-care (01) ==
LOC: MW.ED 10:10
DX: S93.401A Sprain of unspecified ligament of right ankle, initial encounter (principal); R60.0 Localized edema; I10 Essential (primary) hypertension; E66.9 Obesity, unspecified; Z68.42 Body mass index [BMI] 45.0-49.9, adult; F17.210 Nicotine dependence, cigarettes, uncomplicated; Z20.822 Contact with and (suspected) exposure to COVID-19; Z88.0 Allergy status to penicillin; Z88.2 Allergy status to sulfonamides
CPT/HCPCS: 0240U; 36415; 71045; 73610; 80053; 81003; 83735; 84484; 85025; 93005; 96374; 99284; J1885; J3490

== ENCOUNTER 2022-08-26 12:22 | Emergency (ER) | payer MEDICAID ==
[2022-08-26 13:50] LABS: CARBON DIOXIDE,CO2 23.2 mmol/L (21.0-32.0); POTASSIUM,K 3.1 mmol/L (3.5-5.1)
[2022-08-26] MEDS ORDERED: Potassium Chloride 20 MEQ Tab.ER PO ONE (14:10)
[2022-08-26] MEDS ORDERED: Acetaminophen/HYDROcodone 325-10 MG Tab PO ONE (15:16)
[2022-08-26 15:29] VITALS: BP 147/91; PULSE 82
== END 2022-08-26 15:29 | disposition home or self-care (01) ==
LOC: MW.ED 12:22
DX: N44.2 Benign cyst of testis (principal); I10 Essential (primary) hypertension; E78.00 Pure hypercholesterolemia, unspecified; E66.9 Obesity, unspecified; Z68.41 Body mass index [BMI] 40.0-44.9, adult; Z72.0 Tobacco use; Z88.0 Allergy status to penicillin; Z88.1 Allergy status to other antibiotic agents; Z88.2 Allergy status to sulfonamides; Z79.899 Other long term (current) drug therapy
CPT/HCPCS: 36415; 76870; 80053; 81003; 85025; 93976; 99284; A9270; 99283

== ENCOUNTER 2022-12-25 14:48 | Emergency (ER) | payer MEDICAID ==
[2022-12-25] MEDS ORDERED: Acetaminophen/oxyCODONE 325-5 MG Tab PO ONE (15:07)
[2022-12-25] MEDS ORDERED: Ondansetron 4 MG Tab.DIS PO ONE (15:07)
[2022-12-25 15:27] LABS: BASOPHILS PERCENT AUTO 0.1 % (0.0-1.5); EOSINOPHILS ABSOLUTE AUTO 0.2 K/uL (0.0-0.7); HEMATOCRIT 42.9 % (38.0-50.0); HEMOGLOBIN 14.9 g/dL (13.0-17.0); LYMPHOCYTES ABSOLUTE AUTO 1.6 K/uL (0.6-2.4); LYMPHOCYTES PERCENT AUTO 15.7 % (16.0-40.0); MEAN CORPUSCULAR HEMOGLOBIN 29.9 pg (27.0-32.0); MEAN CORPUSCULAR HGB CONC 34.7 g/dL (31.0-37.0); MONOCYTES ABSOLUTE AUTO 0.8 K/uL (0.0-0.8); MONOCYTES PERCENT AUTO 7.5 % (0.0-15.0); NEUTROPHILS ABSOLUTE AUTO 7.4 K/uL (1.4-5.7); NEUTROPHILS PERCENT AUTO 74.7 % (48.0-80.0); NRBC ABSOLUTE 0 K/uL; PLATELET COUNT,PLT 332 K/uL (150-400); RED BLOOD CELL COUNT 4.99 M/uL (4.50-5.90); WHITE BLOOD CELL COUNT,WBC 9.95 K/uL (4.0-11.0)
[2022-12-25 15:46] LABS: A/G RATIO 0.7 (0.9-1.6); ALBUMIN 3.4 g/dL (3.4-5.0); BILIRUBIN TOTAL 0.3 mg/dL (0.2-1.0); CARBON DIOXIDE,CO2 26.9 mmol/L (21.0-32.0); EST CRCL DRUG DOSING (CG) 95.92 mL/min; POTASSIUM,K 3.3 mmol/L (3.5-5.1)
[2022-12-25 15:52] LABS: LACTIC ACID 1.5 mmol/L (0.4-2.0)
[2022-12-25 16:15] LABS: APPEARANCE,URINE CLEAR; BILIRUBIN,URINE NEGATIVE (NEGATIVE); COLOR,URINE YELLOW; GLUCOSE,URINE NEGATIVE (NEGATIVE); KETONES,URINE NEGATIVE (NEGATIVE); LEUKOCYTE ESTERASE,URINE NEGATIVE (NEGATIVE); NITRITE,URINE NEGATIVE (NEGATIVE); OCCULT BLOOD,URINE NEGATIVE (NEGATIVE); PROTEIN,URINE NEGATIVE (NEGATIVE); UROBILINOGEN,URINE 0.2 EU/dL (<2.0)
[2022-12-25 17:13] VITALS: BP 112/76; PULSE 78
== END 2022-12-25 17:25 | disposition home or self-care (01) ==
LOC: MW.ED 14:48
DX: G89.18 Other acute postprocedural pain (principal); E78.00 Pure hypercholesterolemia, unspecified; I10 Essential (primary) hypertension; M10.9 Gout, unspecified; K21.9 Gastro-esophageal reflux disease without esophagitis; E66.9 Obesity, unspecified; Z79.899 Other long term (current) drug therapy; Z88.1 Allergy status to other antibiotic agents; Z87.718 Personal history of other specified (corrected) congenital malformations of genitourinary system; Z68.41 Body mass index [BMI] 40.0-44.9, adult
CPT/HCPCS: 36415; 76870; 80053; 81003; 83605; 85025; 93976; 99284; A9270; 99283

== ENCOUNTER 2023-01-04 09:15 | Emergency (ER) | payer MEDICAID ==
[2023-01-04 10:01] LABS: BASOPHILS PERCENT AUTO 0.4 % (0.0-1.5); EOSINOPHILS ABSOLUTE AUTO 0.1 K/uL (0.0-0.7); EOSINOPHILS PERCENT AUTO 1.3 % (0.0-7.0); HEMATOCRIT 40.3 % (38.0-50.0); HEMOGLOBIN 14.1 g/dL (13.0-17.0); LYMPHOCYTES ABSOLUTE AUTO 1.4 K/uL (0.6-2.4); LYMPHOCYTES PERCENT AUTO 16.4 % (16.0-40.0); MEAN CORPUSCULAR HEMOGLOBIN 29.7 pg (27.0-32.0); MEAN CORPUSCULAR VOLUME 84.8 fL (80.0-98.0); MONOCYTES ABSOLUTE AUTO 0.9 K/uL (0.0-0.8); MONOCYTES PERCENT AUTO 10.9 % (0.0-15.0); NRBC ABSOLUTE 0 K/uL; PLATELET COUNT,PLT 343 K/uL (150-400); RED BLOOD CELL COUNT 4.75 M/uL (4.50-5.90); WHITE BLOOD CELL COUNT,WBC 8.44 K/uL (4.0-11.0)
[2023-01-04 10:07] LABS: APPEARANCE,URINE CLEAR; COLOR,URINE YELLOW; GLUCOSE,URINE NEGATIVE (NEGATIVE); KETONES,URINE TRACE mg/dL (NEGATIVE); LEUKOCYTE ESTERASE,URINE NEGATIVE (NEGATIVE); NITRITE,URINE NEGATIVE (NEGATIVE); OCCULT BLOOD,URINE NEGATIVE (NEGATIVE); PH,URINE 6.5 (5.0-8.0); PROTEIN,URINE NEGATIVE (NEGATIVE)
[2023-01-04 10:12] LABS: BILIRUBIN,URINE SMALL (NEGATIVE)
[2023-01-04 10:23] LABS: A/G RATIO 0.7 (0.9-1.6); ALBUMIN 3.3 g/dL (3.4-5.0); BILIRUBIN TOTAL 0.6 mg/dL (0.2-1.0); CALCIUM 9.5 mg/dL (8.5-10.1); CARBON DIOXIDE,CO2 27.6 mmol/L (21.0-32.0); CREATININE 0.9 mg/dL (0.8-1.3); EST CRCL DRUG DOSING (CG) 106.58 mL/min; POTASSIUM,K 2.9 mmol/L (3.5-5.1); PROTEIN TOTAL,TP 7.9 g/dL (6.4-8.2)
[2023-01-04] MEDS ORDERED: Potassium Chloride 20 MEQ Tab.ER PO ONE (10:32)
[2023-01-04 10:41] VITALS: BP 138/83; PULSE 85
== END 2023-01-04 10:49 | disposition home or self-care (01) ==
LOC: MW.ED 09:15
DX: L76.32 Postprocedural hematoma of skin and subcutaneous tissue following other procedure (principal); I10 Essential (primary) hypertension; E78.00 Pure hypercholesterolemia, unspecified; Z88.0 Allergy status to penicillin; Z88.2 Allergy status to sulfonamides; Z79.899 Other long term (current) drug therapy
CPT/HCPCS: 36415; 80053; 81003; 85025; 99284; A9270; 99283

== ENCOUNTER 2023-01-06 08:10 | Emergency (ER) | payer MEDICAID ==
[2023-01-06 08:25] VITALS: BP 139/90; PULSE 99
== END 2023-01-06 08:30 | disposition home or self-care (01) ==
LOC: MW.ED 08:10
DX: N99.840 Postprocedural hematoma of a genitourinary system organ or structure following a genitourinary system procedure (principal); E78.00 Pure hypercholesterolemia, unspecified; I10 Essential (primary) hypertension; Z88.0 Allergy status to penicillin; Z88.8 Allergy status to other drugs, medicaments and biological substances; Z88.1 Allergy status to other antibiotic agents; Z79.899 Other long term (current) drug therapy
CPT/HCPCS: 87070; 87077; 87186; 87205; 99283

== ENCOUNTER 2023-01-13 07:09 | Emergency (ER) | payer MEDICAID ==
[2023-01-13] MEDS ORDERED: Sodium Chloride 0.9% 2.5 ML Syringe FLUSH PRN (07:49)
[2023-01-13] MEDS ORDERED: Sodium Chloride 0.9% 10 ML Syringe FLUSH PRN (07:49)
[2023-01-13] MEDS ORDERED: Ketorolac 30 MG/ML SDV IVPUSH ONE (07:50)
[2023-01-13 08:42] LABS: APPEARANCE,URINE CLEAR; BILIRUBIN,URINE NEGATIVE (NEGATIVE); COLOR,URINE YELLOW; GLUCOSE,URINE NEGATIVE (NEGATIVE); KETONES,URINE NEGATIVE (NEGATIVE); LEUKOCYTE ESTERASE,URINE NEGATIVE (NEGATIVE); NITRITE,URINE NEGATIVE (NEGATIVE); OCCULT BLOOD,URINE NEGATIVE (NEGATIVE); PH,URINE 7.5 (5.0-8.0); PROTEIN,URINE NEGATIVE (NEGATIVE); UROBILINOGEN,URINE 0.2 EU/dL (<2.0)
[2023-01-13 08:43] LABS: BASOPHILS PERCENT AUTO 0.3 % (0.0-1.5); EOSINOPHILS ABSOLUTE AUTO 0.3 K/uL (0.0-0.7); EOSINOPHILS PERCENT AUTO 4.6 % (0.0-7.0); HEMATOCRIT 41.9 % (38.0-50.0); HEMOGLOBIN 14.4 g/dL (13.0-17.0); LYMPHOCYTES ABSOLUTE AUTO 1.8 K/uL (0.6-2.4); LYMPHOCYTES PERCENT AUTO 29.9 % (16.0-40.0); MEAN CORPUSCULAR HEMOGLOBIN 29.4 pg (27.0-32.0); MEAN CORPUSCULAR HGB CONC 34.4 g/dL (31.0-37.0); MEAN CORPUSCULAR VOLUME 85.7 fL (80.0-98.0); MONOCYTES ABSOLUTE AUTO 0.8 K/uL (0.0-0.8); MONOCYTES PERCENT AUTO 13.6 % (0.0-15.0); NEUTROPHILS ABSOLUTE AUTO 3.1 K/uL (1.4-5.7); NEUTROPHILS PERCENT AUTO 51.6 % (48.0-80.0); PLATELET COUNT,PLT 351 K/uL (150-400); RED BLOOD CELL COUNT 4.89 M/uL (4.50-5.90); WHITE BLOOD CELL COUNT,WBC 6.03 K/uL (4.0-11.0)
[2023-01-13 08:59] LABS: BACTERIA,URINE NOT SEEN (NEGATIVE); EPITHELIAL CELLS,URINE RARE (NONE-FEW); RBC,URINE NONE SEEN (0-2/HPF); WBC,URINE NONE SEEN (0-5/HPF)
[2023-01-13 09:07] LABS: A/G RATIO 0.8 (0.9-1.6); ALBUMIN 3.1 g/dL (3.4-5.0); BILIRUBIN TOTAL 0.4 mg/dL (0.2-1.0); CALCIUM 8.1 mg/dL (8.5-10.1); CARBON DIOXIDE,CO2 26.9 mmol/L (21.0-32.0); CREATININE 0.9 mg/dL (0.8-1.3); EST CRCL DRUG DOSING (CG) 106.58 mL/min; POTASSIUM,K 3.2 mmol/L (3.5-5.1); PROTEIN TOTAL,TP 7.1 g/dL (6.4-8.2)
[2023-01-13 09:56] VITALS: BP 135/83; PULSE 87
== END 2023-01-13 09:47 | disposition home or self-care (01) ==
LOC: MW.ED 07:09
DX: M25.561 Pain in right knee (principal); E78.00 Pure hypercholesterolemia, unspecified; I10 Essential (primary) hypertension; Z88.0 Allergy status to penicillin; Z88.1 Allergy status to other antibiotic agents; Z79.899 Other long term (current) drug therapy
CPT/HCPCS: 36415; 73562; 74176; 80053; 81001; 85025; 96374; 99284; J1885; J3490

== ENCOUNTER 2023-02-06 08:15 | Day surgery (SDC) | payer MEDICAID ==
[~2023-02-06 08:15] MED LIST changes: +Albuterol 0.083% 2.5 MG/3 ML Neb Soln NEB PRN; +Clindamycin Phosphate in D5W 900 MG in Premix Bag 1 BAG IV ONE; +HYDROmorphone 1 MG/ML Syringe IVPUSH PRN; +Metoclopramide 10 MG/2 ML SDV IVPUSH PRN; +Morphine 2 MG/ML SYRINGE IVPUSH PRN; +Naloxone 0.4 MG/ML SDV IVPUSH PRN; +Ondansetron 4 MG/2 ML SDV IVPUSH PRN; +VANCOmycin 2 GM/400 ML 2 GM in Premix Bag 1 BAG IV ONE; +droPERidol 5 MG/2 ML SDV IVPUSH PRN; +fentaNYL 50 MCG/ML SDV IVPUSH PRN
[2023-02-06] MEDS ORDERED: Lidocaine 2% 5 ML SDV ONE (09:26)
[2023-02-06] MEDS ORDERED: Dexamethasone 4 MG/ML 5 ML MDV ONE (09:26)
[2023-02-06] MEDS ORDERED: Ketorolac 30 MG/ML SDV ONE (09:26)
[2023-02-06] MEDS ORDERED: fentaNYL 100 MCG/2 ML SDV ONE (09:26)
[2023-02-06] MEDS ORDERED: Propofol 200 MG/20 ML SDV ONE (09:26)
[2023-02-06] MEDS ORDERED: Ondansetron 4 MG/2 ML SDV ONE (09:26)
[2023-02-06] MEDS ORDERED: ePHEDrine 50 MG/ML SDV ONE (10:49)
[2023-02-06 12:17] VITALS: BP 133/94; PULSE 90
== END 2023-02-06 12:10 | disposition home or self-care (01) ==
LOC: MW.SDS 08:15
PROVIDERS: ATTEND Orthopaedic Surgery
DX: S83.231A Complex tear of medial meniscus, current injury, right knee, initial encounter (principal); G47.33 Obstructive sleep apnea (adult) (pediatric); E87.6 Hypokalemia; M94.269 Chondromalacia, unspecified knee; E66.01 Morbid (severe) obesity due to excess calories; E78.5 Hyperlipidemia, unspecified; R53.83 Other fatigue; M10.9 Gout, unspecified; I10 Essential (primary) hypertension; Z68.42 Body mass index [BMI] 45.0-49.9, adult; Z88.0 Allergy status to penicillin; Z88.1 Allergy status to other antibiotic agents; Z88.2 Allergy status to sulfonamides; E78.00 Pure hypercholesterolemia, unspecified; E78.1 Pure hyperglyceridemia; Z90.89 Acquired absence of other organs; Z98.890 Other specified postprocedural states; F17.210 Nicotine dependence, cigarettes, uncomplicated
CPT/HCPCS: 29881; J1100; J1885; J2405; J2704; J3010; J3370; J7120; J3490

== ENCOUNTER 2023-06-21 09:16 | Emergency (ER) | payer SELFPAY ==
[2023-06-21 10:06] VITALS: BP 146/80; PULSE 100
== END 2023-06-21 10:05 | disposition home or self-care (01) ==
LOC: MW.ED 09:16
DX: U07.1 COVID-19 (principal); I10 Essential (primary) hypertension; E66.9 Obesity, unspecified; Z68.35 Body mass index [BMI] 35.0-35.9, adult; Z79.899 Other long term (current) drug therapy; Z88.2 Allergy status to sulfonamides; Z88.1 Allergy status to other antibiotic agents; Z88.0 Allergy status to penicillin; Z88.8 Allergy status to other drugs, medicaments and biological substances
CPT/HCPCS: 99283

== ENCOUNTER 2024-04-20 08:04 | Emergency (ER) | payer SELFPAY ==
[2024-04-20 08:16] VITALS: PULSE 103
[2024-04-20 08:36] VITALS: BP 161/104
[2024-04-20] MEDS: Ketorolac 60 MG/2 ML SDV IM ONE (08:52)
== END 2024-04-20 09:17 | disposition home or self-care (01) ==
LOC: MW.ED 08:04
DX: M10.9 Gout, unspecified (principal); Z76.0 Encounter for issue of repeat prescription; I10 Essential (primary) hypertension; E66.9 Obesity, unspecified; Z68.42 Body mass index [BMI] 45.0-49.9, adult; Z79.899 Other long term (current) drug therapy; Z88.0 Allergy status to penicillin; Z88.1 Allergy status to other antibiotic agents; Z88.2 Allergy status to sulfonamides
CPT/HCPCS: 96372; 99283; J1885